=== PATIENT | female | born 1985 | race Caucasian/White ===

== ENCOUNTER 2017-11-16 14:08 | Outpatient (CLI) | payer MEDICAID, SELFPAY ==
[2017-11-16 14:39] LABS: Abs Immature Grans 0.05 k/cumm (0.0-0.09); Absolute Basophil Count 0.01 k/cumm (0.0-0.2); Absolute Eosinophil Count 0.14 k/cumm (0.0-0.7); Absolute Lymphocyte Count 2.13 k/cumm (1.2-3.4); Absolute Monocyte Count 0.68 k/cumm (0.11-0.7); Absolute Neutrophil Count 7.01 k/cumm (1.2-6.7); Basophils % 0.1; Eosinophils % 1.4; HGB 11.8 g/dL (12.0-15.5); Immature Grans % 0.5; Lymphocytes % 21.3; Mean Corp. HGB Concentration 34.7 g/dL (32.0-36.0); Mean Corpuscular Volume 86.5 fL (80-95); Mean Platelet Volume 9.6 fL (8.0-11.0); Monocytes % 6.8; Neutrophils % 69.9; Platelet Count 276 x1000/uL (130-400); RBC 3.93 m/cumm (4.00-5.20); RBC Distribution Width 13.5 % (11.7-14.6); White Blood Cell Count 10.02 k/cumm (4.4-10.8)
[2017-11-16 15:55] LABS: TSH (W/Ref FT4) 0.84 uIU/mL (0.358-3.74)
[2017-11-16 17:22] LABS: *AMPHETAMINES SCREEN URINE Negative (Negative); *BARBITURATES SCREEN URINE Negative (Negative); *BENZODIAZEPINES SCREEN URINE Negative (Negative); Cannabinoids THC Negative (Negative); Cocaine Screen,Urine Negative (Negative); METHADONE URINE SCREEN Negative (Negative); OPIATES URINE SCREEN Negative (Negative)
[2017-11-16 17:25] LABS: Tricyclic Antidepressants Negative (Negative)
[2017-11-17 12:29] LABS: HIV-1/2 Ag & Ab Screen Negative (NEGAT)
[2017-11-19 11:42] LABS: Hepatitis C Ab w Rflx HCV PCR Negative (NEGAT)
[2017-11-19 11:44] LABS: Hepatitis B Surface Ag Negative (NEGAT)
[2017-11-19 12:55] LABS: Rubella IgG Ab (UVM) Positive
[2017-11-19 12:58] LABS: Syphilis Serology (RPR) Negative (Negative)
[2017-11-19 15:05] LABS: Chlamydia Result Negative; GC Result Negative; Specimen Description URINE
== END 2017-11-16 14:09 ==
PROVIDERS: Visit Provider Midwife
DX: Z34.91 Encounter for supervision of normal pregnancy, unspecified, first trimester (principal); Z11.3 Encounter for screening for infections with a predominantly sexual mode of transmission
CPT/HCPCS: 36415; 80055; 80307; 86850; 86900; 86901; 87491; 87591; 84443

== ENCOUNTER 2017-11-30 13:03 | Outpatient (CLI) | payer MEDICAID, SELFPAY ==
[2017-12-03 14:48] LABS: AFP 33.4 ng/mL; Calculated age at EDD 30 years; Cigarette smoking status non-smoker; GA used in risk estimate Dates estimate; INHIBIN 211 pg/mL; IVF Pregnancy No; Initial or repeat testing Initial testing; Insulin dependent diabetes No; Maternal Weight 192 lbs; Number of Fetuses 1; Physician Phone Number 802-748-7300; Prev Down(T21)/Trisomy Pregnan No; Prev Pregnancy w/NTD No; RECOMMENDED FOLLOW UP None.; Results Summary Normal risk; hCG, TOTAL 22.2 IU/mL; hCG, TOTAL MoM 1.07 MoM; uE3 2.81 ng/mL; uE3 MoM 1.69 MoM
== END 2017-11-30 13:23 ==
PROVIDERS: Visit Provider Advanced Practice Midwife
DX: Z34.82 Encounter for supervision of other normal pregnancy, second trimester (principal); Z36.89 Encounter for other specified antenatal screening
CPT/HCPCS: 36415; 81511

== ENCOUNTER 2017-12-14 00:17 | Outpatient (CLI) | payer MEDICAID, SELFPAY ==
--- NOTE | 2017-12-14 15:41 | DI.US_ITS ---
SYMPTOM/DIAGNOSIS: , Z34.90 OB ULTRASOUND: 12/14/17 OB ultrasound was performed according to 2nd trimester protocol. Please see accompanying data sheet. The placenta is anterior and there is no evidence of placenta previa. There is visually a normal quantity of amniotic fluid. biometry is consistent with gestational age of 22 weeks 4 days and an EDC of 04/15/18 anomaly screen is within normal limits as per the attached check list. Many abnormalities cannot be diagnosed. A normal exam does not exclude a congenital anomaly. Radiology No. [id number] LMP: Exam Date: 12/14/17 [facility] wks days on EDC ([facility]) 04/21/18 Confirmed: HISTORY: SURVEY ---- PREDICTED GESTATIONAL AGE NUMBER 21 +5 weeks with a range of 20 +5 week to 22 +5 weeks. 1 Determined by___1STUS___LMP___HISTORY Info. pertaining to fetus # PLACENTA PRESENTATION Grade I Cephalic_XX__ Anterior_XX__Posterior___ Breech____ Right Left Transverse(head right___ Fundal___Low-lying___Previa___ Transverse(head left___ Varying BIOMETRY AMNIOTIC FLUID BPD:54 mm 22 +4 weeks Normal HC: 205 mm weeks AC: 177 mm weeks FL: 39 mm 22 +5 weeks AMNIOTIC FLUID INDEX >26 WK CRL: mm weeks Cisterna Magna: 4.4 mm CI: 81 RUQ: LUQ Cerebellum: 2.11 cm EFW: 519 grams 87% Percentile RLQ: LLQ Total: cms Composite AGE= 22 +4 wks EDC by US__04/15/18 BIOPHYSICAL PROFILE ANATOMY IDENTIFIED SCORE 0/2 Heart: 4-Chamber__X_Rate:BPM_145 BPM____ LVOT:___X RVOT:__X Amniotic Fluid(>2cms)____ Stomach:__X Kidneys:___X____ Respirations (>30 secs) Bladder:____X____ Post. Fossa:__X Body Flex/Extension 3 vessel cord:___X____Ventricles:___X cord insertion:___X__ Lips:_X___ Extremity Flex/Extension spinal morphology:__X Nose:X Total Score= Palate:__X NS=not seen
== END 2017-12-14 00:37 ==
PROVIDERS: Visit Provider Midwife
DX: Z34.92 Encounter for supervision of normal pregnancy, unspecified, second trimester (principal)
CPT/HCPCS: 76805

== ENCOUNTER 2018-01-25 13:42 | Outpatient (CLI) | payer MEDICAID, SELFPAY ==
[2018-01-25 14:23] LABS: Glucose,1 Hr (Glucola) 132 mg/dL (80-140)
[2018-01-25 14:31] LABS: HCT 33.4 % (36.0-46.0); HGB 11.2 g/dL (12.0-15.5); Mean Corp. HGB Concentration 33.5 g/dL (32.0-36.0); Mean Corpuscular Hemoglobin 30.2 pg (27.0-33.0); Mean Platelet Volume 8.9 fL (8.0-11.0); Platelet Count 330 x1000/uL (130-400); RBC 3.71 m/cumm (4.00-5.20); RBC Distribution Width 13.5 % (11.7-14.6); White Blood Cell Count 11.55 k/cumm (4.4-10.8)
== END 2018-01-25 14:02 ==
PROVIDERS: Advanced Practice Midwife; Visit Provider Advanced Practice Midwife
DX: Z34.92 Encounter for supervision of normal pregnancy, unspecified, second trimester (principal); Z36.89 Encounter for other specified antenatal screening; Z01.84 Encounter for antibody response examination
CPT/HCPCS: 36415; 82950; 85027; 86850; 90384

== ENCOUNTER 2018-02-22 18:47 | Outpatient (REF) | payer MEDICAID, SELFPAY | END 2018-02-22 19:07 | LOC: LBN 18:47 | PROVIDERS: Visit Provider Advanced Practice Midwife | DX: Z34.93 Encounter for supervision of normal pregnancy, unspecified, third trimester (principal) | CPT/HCPCS: 87077; 87086 ==

== ENCOUNTER 2018-03-08 16:08 | Outpatient (CLI) | payer MEDICAID, SELFPAY | END 2018-03-08 16:28 | PROVIDERS: Visit Provider Advanced Practice Midwife | DX: O36.8130 Decreased fetal movements, third trimester, not applicable or unspecified (principal); Z3A.35 35 weeks gestation of pregnancy | CPT/HCPCS: 59025 ==

== ENCOUNTER 2018-03-22 14:58 | Outpatient (REF) | payer MEDICAID, SELFPAY | END 2018-03-22 15:18 | LOC: LBN 14:58 | PROVIDERS: Visit Provider Advanced Practice Midwife | DX: Z34.93 Encounter for supervision of normal pregnancy, unspecified, third trimester (principal); Z36.85 Encounter for antenatal screening for Streptococcus B | CPT/HCPCS: 87081 ==

== ENCOUNTER 2018-04-18 13:03 | Observation (INO) | payer MEDICAID, SELFPAY ==
[2018-04-18 14:05] LABS: HCT 34.8 % (36.0-46.0); HGB 11.7 g/dL (12.0-15.5); Mean Corp. HGB Concentration 33.6 g/dL (32.0-36.0); Mean Corpuscular Volume 86.4 fL (80-95); Platelet Count 252 x1000/uL (130-400); RBC 4.03 m/cumm (4.00-5.20); RBC Distribution Width 14.3 % (11.7-14.6); White Blood Cell Count 10.76 k/cumm (4.4-10.8)
[2018-04-18 15:43] LABS: ROM Plus Negative
== END 2018-04-18 16:19 | disposition home or self-care (01) | DRG 833 ==
PROVIDERS: Admitting Provider Advanced Practice Midwife; Visit Provider Advanced Practice Midwife
DX: O47.1 False labor at or after 37 completed weeks of gestation (principal); O99.820 Streptococcus B carrier state complicating pregnancy; Z3A.39 39 weeks gestation of pregnancy
CPT/HCPCS: 36415; 84112; 85027; 86850; 86900; 86901; G0378

== ENCOUNTER 2018-04-21 16:00 | Inpatient (IN) | payer MEDICAID, SELFPAY ==
[2018-04-21 20:55] LABS: HCT 35.8 % (36.0-46.0); HGB 12.2 g/dL (12.0-15.5); Mean Corp. HGB Concentration 34.1 g/dL (32.0-36.0); Mean Corpuscular Hemoglobin 29.2 pg (27.0-33.0); Mean Corpuscular Volume 85.6 fL (80-95); Mean Platelet Volume 10.1 fL (8.0-11.0); Platelet Count 261 x1000/uL (130-400); RBC 4.18 m/cumm (4.00-5.20); RBC Distribution Width 14.3 % (11.7-14.6); White Blood Cell Count 13.84 k/cumm (4.4-10.8)
[2018-04-21] MEDS: Lactated Ringers 1,000 ML 999 ML IV (23:05)
[2018-04-22] MEDS: Lactated Ringers 1,000 ML 125 ML IV (00:15)
[2018-04-22] MEDS: Hamamelis Leaf/Glycerin 100 EACH BOX PR (05:30)
[2018-04-22] MEDS: Ibuprofen 600 MG TAB PO (05:30)
[2018-04-23] MEDS: Docusate Sodium 100 MG CAP PO (07:39)
[2018-04-23] MEDS: Acetaminophen 325 MG TAB 650 MG PO (07:40)
[2018-04-23 09:38] LABS: HCT 28.1 % (36.0-46.0); HGB 9.1 g/dL (12.0-15.5); Mean Corp. HGB Concentration 32.4 g/dL (32.0-36.0); Mean Corpuscular Hemoglobin 28.8 pg (27.0-33.0); Mean Corpuscular Volume 88.9 fL (80-95); RBC 3.16 m/cumm (4.00-5.20); RBC Distribution Width 14.8 % (11.7-14.6); White Blood Cell Count 10.47 k/cumm (4.4-10.8)
[2018-04-23 09:39] LABS: Mean Platelet Volume 9.8 fL (8.0-11.0); Platelet Count 232 x1000/uL (130-400)
== END 2018-04-23 18:15 | disposition home or self-care (01) | DRG 807 ==
PROVIDERS: Admitting Provider Advanced Practice Midwife; Visit Provider Advanced Practice Midwife
DX: O66.0 Obstructed labor due to shoulder dystocia (principal); Z37.0 Single live birth; O76 Abnormality in fetal heart rate and rhythm complicating labor and delivery; O69.81X0 Labor and delivery complicated by cord around neck, without compression, not applicable or unspecified; O69.3XX0 Labor and delivery complicated by short cord, not applicable or unspecified; O99.824 Streptococcus B carrier state complicating childbirth; Z3A.40 40 weeks gestation of pregnancy; O26.893 Other specified pregnancy related conditions, third trimester; Z67.41 Type O blood, Rh negative
CPT/HCPCS: 36415; 85027; 85461; 86850; 86900; 86901; 90384; G0378; J1050; J2540; J2790; J3490

== ENCOUNTER 2018-06-04 12:51 | Outpatient (REF) | payer MEDICAID, SELFPAY ==
--- NOTE | 2018-06-04 11:40 | PAPFT_PTH ---
PATIENT: Cyndy Gomez LOC: [facility] U#:[id number] AGE/SX: 32/F ROOM: RE06/04/[address]: Ludmila Davenport : 1985 BED: DIS: 06/04/2018 SPEC #: [id number] RECD: 06/04/18 17:57 STATUS: NERY REAngeline #: [id number] EWA: 06/04/18 11:[address]: Ludmila Davenport [facility] Cytology RECD BY: Adriana Pruitt ENTERED: 06/04/18 17:57 SP TYPE: PAPFT ANIBAL DR: None Tissues: 1 - CX/ENDOCX FOR PAP SMEARS Procedures: PAP THIN PREP/UVM Screening HPV DNA PROBE Comments: [id number]
== END 2018-06-04 13:11 ==
LOC: LBN 12:51
PROVIDERS: PCP Nurse Practitioner Family; Visit Provider Advanced Practice Midwife
DX: Z12.4 Encounter for screening for malignant neoplasm of cervix (principal); Z11.51 Encounter for screening for human papillomavirus (HPV)
CPT/HCPCS: 88142; 87624

== ENCOUNTER 2020-07-21 11:44 | Emergency (ER) | payer MEDICAID, SELFPAY ==
[2020-07-21] VITALS (18 sets, daily range): BP systolic 111–126; BP diastolic 62–79; PULSE 63–89; RESP 15–23; TEMP 37.1; O2SAT 98–100
--- NOTE | 2020-07-21 11:45 | RT.EKG_ITS ---
APPROVED REPORT Exam: Resting ECG Reason for Exam: passed out Patient Location: E HR:73 bpm ECG Measurements Heart Rate 73 AXIS VA 147 P 49 QRSd 84 QRS 67 QT 377 T 31 QTc 416 Conclusion Sinus rhythm...normal P axis, V-rate 60- 99
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
--- NOTE | 2020-07-21 12:00 | DI.CT_ITS ---
Exam(s) CT HEAD WO EXAM: CT HEAD WO CLINICAL HISTORY: Syncope, closed head injury. TECHNIQUE: Imaging Protocol: Axial computed tomography images with coronal and sagittal reformatted images were created and reviewed COMPARISON: No exams were available for comparison FINDINGS: Ventricles and Extra axial spaces: Normal in size and morphology for the patient's age. Hemorrhage: None. Cerebral parenchyma: Normal. Midline shift: None. Brainstem/Cerebellum: Normal. Calvarium: Normal. Visualized Paranasal sinuses/Mastoids: Clear. Soft Tissues: Unremarkable. IMPRESSION: 1. No acute intracranial process. 2. Results of this exam have been verbally communicated with provider. RADIATION DOSE DELIVERED: 747.29mGy.cm Total DLP DATA REPOSITORY: All CT scans at this facility are submitted to the National Radiology Data Registry (NRDR) Dose Index Registry (DIR) with the [employer] (ACR). RADIATION OPTIMIZATION: All CT scans at this facility use at least one of these dose optimization te chniques: automated exposure control; mA and/or kV adjustment per patient size (includes targeted exa ms where dose is matched to clinical indication); or iterative reconstruction.
[2020-07-21] MEDS: Normal Saline 1,000 ML 1000 ML IV (12:25)
[2020-07-21 12:31] LABS: Abs Immature Grans 0.04 10^3/uL (0.0-0.06); Absolute Basophil Count 0.03 10^3/uL (0.0-0.2); Absolute Eosinophil Count 0.07 10^3/uL (0.0-0.7); Absolute Lymphocyte Count 2.38 10^3/uL (1.2-3.4); Absolute Monocyte Count 0.58 10^3/uL (0.1-0.8); Absolute Neutrophil Count 6.49 10^3/uL (1.2-6.7); Basophils % 0.3; Eosinophils % 0.7; HCT 37.1 % (36.0-46.0); HGB 12.2 g/dL (11.2-15.7); Immature Grans % 0.4; Lymphocytes % 24.8; MCH 28.5 pg (27.0-33.0); MCHC 32.9 % (32.0-36.0); MCV 86.7 fL (80-95); MPV 9.7 fL (8.0-11.0); Neutrophils % 67.8; Nucleated RBC 0 %; Platelet Count 298 10^3/uL (130-400); RBC 4.28 10^6/uL (3.93-5.22); RDW 13.2 % (11.7-14.6); WBC 9.59 10^3/uL (4.4-10.8)
[2020-07-21 12:47] LABS: ALT 24 U/L (14-59); AST 14 U/L (15-37); Alkaline Phosphatase 79 U/L (46-116); Anion Gap 10.4 mmol/L (3-11); BUN 18 mg/dL (7-18); Bilirubin, Total 0.4 mg/dL (0.2-1.0); CO2 25.6 mmol/L (21.0-32.0); CREATININE 0.8 mg/dL (0.55-1.02); Calcium 8.9 mg/dL (8.5-10.1); Chloride 107 mmol/L (98-107); Glucose 79 mg/dL (74-106); Potassium 3.7 mmol/L (3.5-5.1); Sodium 143 mmol/L (136-145); Total Protein 7.6 g/dL (6.4-8.2)
[2020-07-21 12:47] LABS: Bilirubin Negative (Negative); Blood Trace-lysed (Negative); Clarity Clear (Clear); Glucose Negative (Negative); Ketones Negative (Negative); Leukocyte Esterase Trace (Negative); Nitrite Negative (Negative); Specific Gravity >= 1.030 (1.005-1.025); Urobilinogen 0.2 EU/dL (Up TO 0.2); pH 5.5 (5-8)
[2020-07-21 12:48] LABS: Troponin I < 0.05 ng/mL (<0.06)
[2020-07-21 12:52] LABS: Bacteria Few HPF (Negative); C & S Indicated? No/Sq. Contamination; Casts Negative LPF (Negative); Crystals Negative HPF (Negative); Epithelial Cells Moderate HPF (Negative); Mucus Negative (Negative); RBC 0-2 HPF (0-2); WBC 0-2 HPF (0-5)
[2020-07-21] MEDS: Ibuprofen 600 MG TAB PO (12:53)
[2020-07-21 12:54] LABS: TSH 1.51 uIU/mL (0.36-3.74)
== END 2020-07-21 13:54 | disposition home or self-care (01) ==
PROVIDERS: Emergency Provider Registered Nurse Emergency; PCP Nurse Practitioner Family
DX: R55 Syncope and collapse (principal); S00.81XA Abrasion of other part of head, initial encounter; W22.09XA Striking against other stationary object, initial encounter; R51.9 Headache, unspecified
CPT/HCPCS: 36415; 80053; 81025; 93005; 96360; 99285; 70450; 81003; 81015; 83735; 84443; 84484; 85025; 93010; 99284

== ENCOUNTER 2021-03-25 11:39 | Outpatient (CLI) | payer MEDICAID, SELFPAY ==
[2021-03-26 14:59] LABS: COVID-19 RT-PCR UVMMC Result Negative (Negative)
== END 2021-03-25 11:40 | disposition home or self-care (01) ==
PROVIDERS: PCP Nurse Practitioner Family; Visit Provider Nurse Practitioner Family
DX: Z20.822 Contact with and (suspected) exposure to COVID-19 (principal)
CPT/HCPCS: U0003

== ENCOUNTER 2021-09-13 14:48 | Outpatient (REF) | payer MEDICAID, SELFPAY ==
[2021-09-13 20:36] LABS: Vitamin B12 529 pg/mL (193-986)
== END 2021-09-13 14:49 | disposition home or self-care (01) ==
LOC: NCHCN 14:48
PROVIDERS: PCP Nurse Practitioner Family; Visit Provider Nurse Practitioner Family
DX: R20.2 Paresthesia of skin (principal)
CPT/HCPCS: 82607

== ENCOUNTER 2021-12-21 16:26 | Outpatient (REF) | payer MEDICAID, SELFPAY ==
[2021-12-21 15:00] LABS: ESR 12 mm/hr (0-20)
[2021-12-21 16:02] LABS: C-Reactive Protein 1.53 mg/dL (0.0-0.3)
[2021-12-21 21:52] LABS: Rheumatoid Factor 8.9 IU/mL (<12.0)
[2021-12-22 15:37] LABS: ANA Interpretation Positive (Negative); ANA Titer Pattern 1:320 Speckled
== END 2021-12-21 16:27 | disposition home or self-care (01) ==
LOC: NCHCN 16:26
PROVIDERS: PCP Nurse Practitioner Family; Visit Provider Nurse Practitioner Family
DX: M25.59 Pain in other specified joint (principal); G89.29 Other chronic pain
CPT/HCPCS: 85652; 86038; 86140; 86431

== ENCOUNTER 2021-12-28 19:14 | Outpatient (REF) | payer MEDICAID, SELFPAY ==
[2021-12-29 13:04] LABS: dsDNA Ab, IgG <12.3 IU/mL (<30.0)
== END 2021-12-28 19:15 | disposition home or self-care (01) ==
LOC: NCHCN 19:14
PROVIDERS: PCP Nurse Practitioner Family; Visit Provider Nurse Practitioner Family
DX: R79.89 Other specified abnormal findings of blood chemistry (principal)
CPT/HCPCS: 86225

== ENCOUNTER 2022-04-27 00:58 | Outpatient (CLI) | payer MEDICAID, SELFPAY ==
--- NOTE | 2022-04-27 07:45 | DI.RAD_ITS ---
Exam(s) XR LUMBAR SPINE AP, LAT EXAM: XR LUMBAR SPINE AP, LAT CLINICAL HISTORY: BILAT LOW BACK PAIN, M54.50,? ,? inflammatory axial changes. TECHNIQUE: 2D digital imaging was performed. COMPARISON: No exams were available for comparison FINDINGS: 3 views No evidence of fracture, listhesis, nor pars defects. Mild disc space narrowing L5-S1 noted. There is left-sided sacralization of the L5 segment. Therefore this diminished L5-S1 disc space height is most probably developmental. This places additional stress upon the L4-5 disc level. Facet joints appear unremarkable. Bone density normal. No osseous lesions. No significant scoliosi s. SI joints appear unremarkable. IMPRESSION: As above. Sacralized L5 segment places additional stress on the L4-5 disc space. If there is clinic al consideration for disc herniation than MRI would be recommended. DATA REPOSITORY: RADIATION DOSE DELIVERED:
== END 2022-04-27 01:18 ==
LOC: DI 00:59
PROVIDERS: PCP Nurse Practitioner Family; Visit Provider Internal Medicine
DX: M54.59 Other low back pain (principal); M51.37 Other intervertebral disc degeneration, lumbosacral region; G89.29 Other chronic pain
CPT/HCPCS: 72100

== ENCOUNTER 2023-05-28 15:22 | Outpatient (REF) | payer MEDICAID, SELFPAY ==
--- NOTE | 2023-05-28 15:10 | PAPFT_PTH ---
PATIENT: Cyndy Gomez LOC: [facility] U#:[id number] AGE/SX: 37/F ROOM: RE05/28/[address]: Linda Hightower : 1985 BED: DIS: 05/28/2023 SPEC #: [id number] RECD: 05/28/23 18:12 STATUS: NERY REQ #: [id number] EWA: 05/28/23 15:[address]: Linda Hightower [facility] Cytology RECD BY: Adriana Pruitt ENTERED: 05/28/23 18:12 SP TYPE: PAPFT OTHR DR: Anne-Marie Beth Tissues: 1 - CX/ENDOCX FOR PAP SMEARS Procedures: PAP THIN PREP/UVM Screening HPV DNA PROBE Comments: [id number]
== END 2023-05-28 15:23 | disposition home or self-care (01) ==
LOC: LBN 15:22
PROVIDERS: PCP Nurse Practitioner Family; Visit Provider Obstetrics & Gynecology Gynecology
DX: Z12.4 Encounter for screening for malignant neoplasm of cervix (principal); Z11.51 Encounter for screening for human papillomavirus (HPV)
CPT/HCPCS: 88142; 87624

== ENCOUNTER 2023-05-28 18:21 | Outpatient (CLI) | payer MEDICAID, SELFPAY ==
[2023-05-28 17:29] LABS: TSH (W/Ref FT4) 1.72 uIU/mL (0.36-3.74)
== END 2023-05-28 18:22 | disposition home or self-care (01) ==
LOC: LBO 18:23
PROVIDERS: PCP Nurse Practitioner Family; Visit Provider Obstetrics & Gynecology Gynecology
DX: N92.5 Other specified irregular menstruation (principal)
CPT/HCPCS: 36415; 84443